=== PATIENT | male | born 1950 | race Caucasian/White ===

== ENCOUNTER 2023-09-15 09:19 | Outpatient (CLI) | payer OTHER | END 2023-09-15 09:20 | disposition home or self-care (01) | LOC: SCSMRI 09:19 | PROVIDERS: ATTEND Orthopaedic Surgery | DX: M54.50 Low back pain, unspecified (principal); M47.26 Other spondylosis with radiculopathy, lumbar region; M47.815 Spondylosis without myelopathy or radiculopathy, thoracolumbar region; M47.817 Spondylosis without myelopathy or radiculopathy, lumbosacral region; M48.05 Spinal stenosis, thoracolumbar region; M48.061 Spinal stenosis, lumbar region without neurogenic claudication; M48.07 Spinal stenosis, lumbosacral region; Z98.890 Other specified postprocedural states | CPT/HCPCS: 72148 ==

== ENCOUNTER 2024-12-08 07:51 | Outpatient (CLI) | payer OTHER ==
[2024-12-08] MEDS ORDERED: Regadenoson 0.4 MG/5 ML SYRINGE ONE (09:30)
== END 2024-12-08 07:52 | disposition home or self-care (01) ==
LOC: NM 07:51
PROVIDERS: ATTEND Physician Assistant Medical
DX: Z48.812 Encounter for surgical aftercare following surgery on the circulatory system (principal); Z95.5 Presence of coronary angioplasty implant and graft
CPT/HCPCS: 78452; 93017; A9502; J2785 ×2

== ENCOUNTER 2024-12-15 11:28 | Outpatient (CLI) | payer OTHER ==
[2024-12-15 13:49] LABS: #Basophils 0.03 10x3/uL (0.0-0.2); %Basophils 0.6 % (0.0-1.0); %Eosinophils 2.3 % (0.0-10.0); %Lymphocytes 28.8 % (21.0-51.0); %Monocytes 8.8 % (0.0-10.0); %Neutrophils 59.5 % (42.0-75.0); Hematocrit 42.5 % (42.0-52.0); Mean Corpuscular HGB CONC 32.9 g/dL (32.0-36.0); Mean Corpuscular Hemoglobin 29.2 pg (27.0-31.0); Mean Corpuscular Volume 88.7 fL (78.0-98.0); Mean Platelet Volume 9.7 fL (7.4-10.4); Platelet Count 298 10x3/uL (130-400); RBC Distribution Width 14.2 % (11.5-14.5); Red Blood Cell (RBC) Count 4.79 mill/uL (4.70-6.10)
[2024-12-15 14:09] LABS: Anion Gap 15 mmol/L (10-20); BUN (Urea Nitrogen) 10 mg/dL (8.4-25.7); Calc. Creatinine Clearance 0 mL/min (70-130); Calcium 9.6 mg/dL (7.8-10.44); Carbon Dioxide 26 mmol/L (23-31); Chloride 102 mmol/L (98-107); Estimated GFR 97; Glucose 87 mg/dL (83-110); Sodium 139 mmol/L (136-145)
== END 2024-12-15 11:29 | disposition home or self-care (01) ==
LOC: LABBT 11:28
PROVIDERS: ATTEND Urology
DX: Z01.818 Encounter for other preprocedural examination (principal); N40.1 Benign prostatic hyperplasia with lower urinary tract symptoms; N31.9 Neuromuscular dysfunction of bladder, unspecified; R97.20 Elevated prostate specific antigen [PSA]
CPT/HCPCS: 71046; 80048; 85025; 93005; 93010

== ENCOUNTER 2024-12-22 08:36 | Day surgery (SDC) | payer OTHER ==
[2024-12-15 12:45] VITALS: BMI 27.3
[2024-12-22] MEDS ORDERED: Lidocaine 2% PF 5 ML VIAL ONE (10:22)
[2024-12-22] MEDS ORDERED: PROPOFOL 20 ML ONE (10:22)
[2024-12-22] MEDS ORDERED: Dexamethasone 4 mg/ml Vial ONE (10:24)
[2024-12-22] MEDS ORDERED: Ondansetron PF 4 MG/2 ML Vial ONE (10:24)
[2024-12-22] MEDS ORDERED: Sodium Chloride 0.9% 100 ML ONE (10:30)
[2024-12-22] MEDS ORDERED: cefTRIAXone (ROCEPHIN) 1 GM VIAL ONE (10:30)
[2024-12-22] MEDS ORDERED: fentaNYL PF 100 MCG/2 ML SYRINGE ONE (10:42)
[2024-12-22] MEDS ORDERED: PHENYLEPHRINE-NS 100 MCG/ML 10 ML SYRINGE ONE (10:57)
[2024-12-22] MEDS ORDERED: ePHEDrine Sulfate 50 MG/10 ML VIAL ONE (11:07)
[2024-12-22] MEDS ORDERED: Vasopressin 20 UNITS/ML VIAL ONE (12:16)
[2024-12-22] MEDS ORDERED: Oxybutynin 5 MG TAB ONE (12:26)
[2024-12-22] MEDS ORDERED: Phenazopyridine HCl 100 MG TAB ONE (12:26)
== END 2024-12-22 16:00 | disposition home or self-care (01) ==
LOC: SDC 08:36
PROVIDERS: ATTEND Urology
PROC: 0VT08ZZ Resection of Prostate, Via Natural or Artificial Opening Endoscopic (ICD-10-PCS; principal; 2024-12-22)
DX: N40.1 Benign prostatic hyperplasia with lower urinary tract symptoms (principal); N13.8 Other obstructive and reflux uropathy; N42.89 Other specified disorders of prostate; I10 Essential (primary) hypertension; I25.10 Atherosclerotic heart disease of native coronary artery without angina pectoris; E78.5 Hyperlipidemia, unspecified; M10.9 Gout, unspecified; K21.9 Gastro-esophageal reflux disease without esophagitis; Z95.5 Presence of coronary angioplasty implant and graft; Z79.82 Long term (current) use of aspirin
CPT/HCPCS: 52601; A4333; J0696; J1100; J2405; J2704; 88305